=== PATIENT | male | born 1990 | race Caucasian/White ===

== ENCOUNTER 2024-03-20 17:27 | Outpatient (CLI) | payer OTHER, SELFPAY | END 2024-03-20 17:28 | disposition home or self-care (01) | LOC: AMB 04-02 15:24 | PROVIDERS: Visit Provider Emergency Medicine Emergency Medical Services | DX: R55 Syncope and collapse (principal) | CPT/HCPCS: A0998 ==

== ENCOUNTER 2024-07-27 13:08 | Outpatient (CLI) | payer OTHER, SELFPAY | END 2024-07-27 13:09 | disposition home or self-care (01) | PROVIDERS: Visit Provider Emergency Medicine | DX: G40.909 Epilepsy, unspecified, not intractable, without status epilepticus (principal) | CPT/HCPCS: A0425; A0433 ==